=== PATIENT | male | born 1970 ===

== ENCOUNTER → 2021-01-10 08:00 | Outpatient (CLI) | payer OTHER ==
[~2021-01-10 08:00] MED LIST: CLARITIN10 M1 PO; FLONASE16 GM; LIPITO PO; TOPROL XL50 M1 PO; WELLBUTRIN XL150 M1 PO; [UNRECOGNIZED DRUG - OTHER] PO
== END | disposition home or self-care (01) ==
LOC: ADM 07:30 → LAB 08:00 → CIR.AMB 01-12 07:00 → EDSTATUS 01-12 07:30
PROVIDERS: ATTEND Orthopaedic Surgery
DX: I10 Essential (primary) hypertension (principal); Z03.818 Encounter for observation for suspected exposure to other biological agents ruled out